=== PATIENT | female | born 1975 | race Caucasian/White ===

== ENCOUNTER 2017-04-03 09:26 | Emergency (ER) | payer MEDICAID ==
[2017-04-03 11:54] VITALS: BP 126/76
== END 2017-04-03 11:54 | disposition home or self-care (01) ==
LOC: ED 09:26
DX: M43.6 Torticollis (principal)
CPT/HCPCS: J1885; J2930; J3010

== ENCOUNTER 2017-10-18 09:19 | Emergency (ER) | payer MEDICAID ==
[~2017-10-18] VITALS: Ht 157.5 cm; Wt 69.0 kg
[2017-10-18 10:08] VITALS: BP 128/77
== END 2017-10-18 10:08 | disposition home or self-care (01) ==
LOC: ED 09:19
DX: B34.9 Viral infection, unspecified (principal)
CPT/HCPCS: Q0162

== ENCOUNTER 2019-02-18 00:58 | Emergency (ER) | payer MEDICAID ==
[~2019-02-18] VITALS: Ht 160 cm; Wt 68.5 kg
[2019-02-18 01:19] VITALS: Ht 160 cm; Wt 68.5 kg
[2019-02-18 02:02] LABS: BASOPHIL % 0.3 % (0-2); PLATELET COUNT 236 x10^3mcL (130-400); RED CELL DISTRIBUTION WIDTH 13.1 % (11.5-14.5)
[2019-02-18 02:10] LABS: CALCIUM 7.8 mg/dL (8.5-10.1); CHLORIDE SERUM 107 mmol/L (98-107); CREATININE SERUM 0.9 mg/dL (0.6-1.0); GFR1 > 60 mL/min; GLUCOSE SERUM 118 mg/dL (74-106); POTASSIUM SERUM 3.8 mmol/L (3.5-5.1); SODIUM SERUM 143 mmol/L (136-145)
[2019-02-18 02:14] LABS: ALKALINE PHOSPHATASE 143 U/L (46-116); ALT/SGPT 23 U/L (14-59); AST/SGOT 16 U/L (15-37); BILIRUBIN TOTAL 0.33 mg/dL (0.20-1.00); LIPASE 149 IU/L (73-393); TOTAL PROTEIN, SERUM 6.7 g/dL (6.4-8.2)
[2019-02-18 02:15] LABS: ALBUMIN 3.1 g/dL (3.4-5.0)
[2019-02-18 02:30] VITALS: BP 109/63
== END 2019-02-18 02:30 | disposition home or self-care (01) ==
LOC: ED 00:58
PROVIDERS: Emergency Medicine
DX: R10.13 Epigastric pain (principal); R11.10 Vomiting, unspecified
CPT/HCPCS: 36415; Q0162